=== PATIENT | female | born 1950 | race Caucasian/White ===

== ENCOUNTER → 2017-01-08 | Outpatient (CLI) | payer OTHER, MEDICARE ==
[2016-08-28 13:14] VITALS: BP 126/63
[~2017-01-08] MED LIST: LATA2.5D2 OP; OMEP20CA9 PO
[2017-01-08 09:56] LABS: CHOLESTEROL/HDL RATIO 4.6
== END | disposition home or self-care (01) ==
LOC: LAB 08:36
PROVIDERS: ATTEND Family Medicine
DX: E78.5 Hyperlipidemia, unspecified (principal); E55.9 Vitamin D deficiency, unspecified
CPT/HCPCS: 36415; 80061; 82306

== ENCOUNTER → 2017-03-05 | Outpatient (CLI) | payer OTHER, MEDICARE ==
[2016-08-28 13:14] VITALS: BP 126/63
--- NOTE | 2017-03-05 09:16 | KCIC ---
PROCEDURE Bone density. HISTORY Osteopenia, loss of height, postmenopausal. COMPARISON None. FINDINGS Dual photon densitometry of the lumbar spine and left proximal femur is performed. Bone mineral density values are measured in grams per cm2. Lumbar spine, L1-L4, total bone mineral density 0.856, T-score -1.7, Z-score 0.2. Left total femur bone mineral density 0.756, T-score -1.5, Z-score -0.1. World Health Organization criteria for bone mineral density interpretation classify patient's as normal (T-score at or above -1.0), osteopenic (T-score between -1 and -2.5), or osteoporotic (T-score at or below -2.5). IMPRESSION Osteopenia of the lumbar spine and left femur. Electronically signed by: Guille Ozuna MD (Mar 05, 2017 09:15:13)
== END | disposition home or self-care (01) ==
LOC: KCIC DEXA 08:50
PROVIDERS: ATTEND Family Medicine
DX: M85.88 Other specified disorders of bone density and structure, other site (principal)
CPT/HCPCS: 77080

== ENCOUNTER 2018-03-02 14:27 | Inpatient (IN) | payer OTHER, MEDICARE ==
[2018-03-02 15:14] LABS: BILIRUBIN,URINE SMALL (NEG); CLARITY,URINE CLEAR; COLOR,URINE AMBER; GLUCOSE,URINE NEGATIVE (NEG); NITRITE,URINE NEGATIVE (NEG); PH,URINE 5.5; PROTEIN,URINE NEGATIVE (NEG-TRACE)
[2018-03-02 15:25] LABS: BACTERIA,URINE MODERATE /HPF (0-FEW); SQUAMOUS EPITHELIAL CELL,UR OCC /LPF
[2018-03-02 15:31] LABS: ADD MAN DIFF? NO
[2018-03-02 15:33] LABS: BASO # 0.1 x10^3/uL (0.0-0.2); BASO % 1 % (0-3); EOS # 0.1 x10^3/uL (0.0-0.7); EOS % 1 % (0-3); HEMATOCRIT 38.9 % (36.0-47.0); LYMPH # 2.3 x10^3/uL (1.0-4.8); LYMPH % 30 % (24-48); MEAN CORPUSCULAR HEMOGLOBIN 30 pg (25-35); MEAN CORPUSCULAR HGB CONC 34 g/dL (31-37); MEAN CORPUSCULAR VOLUME 89 fL (79-100); MONO # 0.7 x10^3/uL (0.0-1.1); MONO % 9 % (0-9); NEUT # 4.6 x10^3uL (1.8-7.7); NEUT % 59 % (31-73); PLATELET COUNT 299 x10^3/uL (140-400); RED BLOOD COUNT 4.39 x10^6/uL (3.50-5.40); WHITE BLOOD COUNT 7.7 x10^3/uL (4.0-11.0)
[2018-03-02] MEDS: ACETAMINOPHEN 500 MG TABLET PO (15:35)
[2018-03-02] MEDS: IV NORMAL SALINE 1000ML BAG 1,000 ML IV ×2 (15:37→20:27)
[2018-03-02 15:44] LABS: PARTIAL THROMBOPLASTIN TIME 28 SEC (24-38); PROTHROMBIN TIME PATIENT 12.9 SEC (11.7-14.0)
[2018-03-02] MEDS ORDERED: cefTRIAXone SODIUM 2 GM in IV DEXTROSE 5% 100 ML IV (16:45)
[2018-03-02] MEDS: cefTRIAXone IV Push 2 GM VIAL. IVP (17:20)
[2018-03-02 17:37] LABS: TROPONINI < 0.017 ng/mL (0.000-0.055)
[2018-03-02 17:41] LABS: ANION GAP 11 (6-14); BLOOD UREA NITROGEN 12 mg/dL (7-20); BUN/CREATININE RATIO 20 (6-20); CARBON DIOXIDE 26 mmol/L (21-32); CHLORIDE 109 mmol/L (98-107); CREATININE 0.6 mg/dL (0.6-1.0); GFR 99.4; GLUCOSE 99 mg/dL (70-99); POTASSIUM 3.7 mmol/L (3.5-5.1); SODIUM 146 mmol/L (136-145)
[2018-03-02 17:43] LABS: THYROID STIM HORMONE (TSH) 0.328 uIU/mL (0.358-3.74)
[2018-03-02 17:44] LABS: ALBUMIN/GLOBULIN RATIO 0.9 (1.0-1.7); ALK PHOS 111 U/L (46-116); ALT (SGPT) 20 U/L (14-59); AST (SGOT) 14 U/L (15-37); CREATINE KINASE 72 U/L (26-192); LIPASE 95 U/L (73-393); MAGNESIUM 1.9 mg/dL (1.8-2.4); TOTAL BILIRUBIN 0.6 mg/dL (0.2-1.0); TOTAL PROTEIN 6.4 g/dL (6.4-8.2)
[2018-03-02] MEDS ORDERED: fentaNYL PF VIAL 100 MCG/2 ML VIAL IV (18:00)
[2018-03-02] MEDS ORDERED: ONDANSETRON PF 4 MG/2 ML VIAL. IV (18:00)
[2018-03-02] MEDS: IOHEXOL 300 MG/ML 100ML VIAL. IV (18:25)
[2018-03-02] MEDS ORDERED: CONTRAST GIVEN MC (18:30)
[2018-03-02] MEDS: LATANOPROST 0.005% OPHTH SOLUTION 2.5ML BOTTLE. OU (21:00)
[2018-03-02] MEDS: ENOXAPARIN 40 MG/0.4 ML SYRINGE. SQ (21:00)
[2018-03-02] MEDS: LACTOBACILLUS RHAMNOSUS GG 1 CAPSULE. PO (22:47)
[2018-03-02] MEDS: oxyCODONE/APAP 7.5/325 1 TAB TABLET PO (22:48)
[2018-03-03] MEDS: ZOLPIDEM 5 MG TABLET. PO (00:47)
[2018-03-03] MEDS: IV NORMAL SALINE 1000ML BAG 1,000 ML IV ×2 (04:00→11:56)
[2018-03-03 04:41] LABS: ADD MAN DIFF? NO
[2018-03-03 04:58] LABS: BASO % 1 % (0-3); EOS # 0.1 x10^3/uL (0.0-0.7); EOS % 2 % (0-3); HEMATOCRIT 39.5 % (36.0-47.0); HEMOGLOBIN 13.4 g/dL (12.0-15.5); LYMPH # 3.1 x10^3/uL (1.0-4.8); LYMPH % 45 % (24-48); MEAN CORPUSCULAR HEMOGLOBIN 30 pg (25-35); MEAN CORPUSCULAR HGB CONC 34 g/dL (31-37); MEAN CORPUSCULAR VOLUME 89 fL (79-100); MONO # 0.6 x10^3/uL (0.0-1.1); MONO % 8 % (0-9); NEUT # 3.1 x10^3uL (1.8-7.7); NEUT % 45 % (31-73); PLATELET COUNT 312 x10^3/uL (140-400); RED BLOOD COUNT 4.42 x10^6/uL (3.50-5.40); RED CELL DISTRIBUTION WIDTH 13.9 % (11.5-14.5); WHITE BLOOD COUNT 6.9 x10^3/uL (4.0-11.0)
[2018-03-03 05:30] LABS: ANION GAP 10 (6-14); BLOOD UREA NITROGEN 9 mg/dL (7-20); CALCIUM 8.5 mg/dL (8.5-10.1); CARBON DIOXIDE 28 mmol/L (21-32); CHLORIDE 106 mmol/L (98-107); CREATININE 0.6 mg/dL (0.6-1.0); GFR 99.4; GLUCOSE 111 mg/dL (70-99); POTASSIUM 3.3 mmol/L (3.5-5.1); SODIUM 144 mmol/L (136-145)
[2018-03-03] MEDS ORDERED: ONDANSETRON PF 4 MG/2 ML VIAL. IV (09:00)
[2018-03-03] MEDS: LACTOBACILLUS RHAMNOSUS GG 1 CAPSULE. PO ×2 (09:21→17:26)
[2018-03-03] MEDS: ACETAMINOPHEN 325 MG TABLET. PO (09:26)
[2018-03-03] MEDS: POTASSIUM CHLORIDE 20 MEQ TABLET.ER. PO (10:57)
[2018-03-03] MEDS: cefTRIAXone IV Push 2 GM VIAL. IVP (17:26)
[2018-03-03] MEDS: oxyCODONE/APAP 7.5/325 1 TAB TABLET PO (20:06)
[2018-03-03] MEDS: ENOXAPARIN 40 MG/0.4 ML SYRINGE. SQ (20:44)
[2018-03-03] MEDS: LATANOPROST 0.005% OPHTH SOLUTION 2.5ML BOTTLE. OU (20:44)
[2018-03-04] MEDS: PANTOPRAZOLE 40 MG TABLET.DR. PO (10:14)
[2018-03-04] MEDS: LACTOBACILLUS RHAMNOSUS GG 1 CAPSULE. PO (10:14)
[2018-03-04] MEDS: POTASSIUM CHLORIDE 20 MEQ TABLET.ER. PO (10:26)
== END 2018-03-04 15:00 | disposition home or self-care (01) | DRG 690 ==
LOC: ER 14:27 → 3 SO LND 18:08
DX: N10 Acute pyelonephritis (principal); E78.00 Pure hypercholesterolemia, unspecified; Z79.899 Other long term (current) drug therapy; Z88.8 Allergy status to other drugs, medicaments and biological substances; Z84.89 Family history of other specified conditions
CPT/HCPCS: 36415; 74177; 80048; 80053; 81001; 82550; 83690; 83735; 84443; 84484; 85025; 85610; 85730; 87040; 87086; 96360; 96361; 99285-25; J0696; J7030; Q9967

== ENCOUNTER 2018-03-12 13:46 | Emergency (ER) | payer OTHER, MEDICARE ==
[2018-03-12 14:25] LABS: ADD MAN DIFF? NO
[2018-03-12 14:29] LABS: BASO % 0 % (0-3); EOS # 0.1 x10^3/uL (0.0-0.7); EOS % 1 % (0-3); HEMOGLOBIN 12.4 g/dL (12.0-15.5); LYMPH # 3.1 x10^3/uL (1.0-4.8); LYMPH % 37 % (24-48); MEAN CORPUSCULAR HEMOGLOBIN 30 pg (25-35); MEAN CORPUSCULAR HGB CONC 34 g/dL (31-37); MEAN CORPUSCULAR VOLUME 88 fL (79-100); MONO # 0.8 x10^3/uL (0.0-1.1); MONO % 9 % (0-9); NEUT # 4.4 x10^3uL (1.8-7.7); NEUT % 53 % (31-73); PLATELET COUNT 421 x10^3/uL (140-400); RED BLOOD COUNT 4.09 x10^6/uL (3.50-5.40); WHITE BLOOD COUNT 8.3 x10^3/uL (4.0-11.0)
[2018-03-12 14:39] LABS: ANION GAP 10 (6-14); BLOOD UREA NITROGEN 21 mg/dL (7-20); BUN/CREATININE RATIO 30 (6-20); CALCIUM 9.3 mg/dL (8.5-10.1); CARBON DIOXIDE 26 mmol/L (21-32); CHLORIDE 102 mmol/L (98-107); CREATININE 0.7 mg/dL (0.6-1.0); GLUCOSE 121 mg/dL (70-99); POTASSIUM 3.8 mmol/L (3.5-5.1); SODIUM 138 mmol/L (136-145)
[2018-03-12 14:44] LABS: ALBUMIN 2.9 g/dL (3.4-5.0); ALBUMIN/GLOBULIN RATIO 0.7 (1.0-1.7); ALK PHOS 150 U/L (46-116); ALT (SGPT) 28 U/L (14-59); AST (SGOT) 23 U/L (15-37); TOTAL BILIRUBIN 0.6 mg/dL (0.2-1.0); TOTAL PROTEIN 7.3 g/dL (6.4-8.2)
[2018-03-12 14:47] LABS: TROPONINI < 0.017 ng/mL (0.000-0.055)
[2018-03-12 14:50] LABS: NT-PRO BNP 211 pg/mL (0-124)
[2018-03-12 15:15] LABS: LACTIC ACID 1.8 mmol/L (0.4-2.0)
[2018-03-12 15:28] LABS: INFLUENZA A PATIENT NEGATIVE (NEGATIVE); INFLUENZA B PATIENT NEGATIVE (NEGATIVE); OBC FLU VALID
[2018-03-12 16:15] LABS: BILIRUBIN,URINE NEGATIVE (NEG); CLARITY,URINE CLEAR; COLOR,URINE YELLOW; GLUCOSE,URINE NEGATIVE (NEG); NITRITE,URINE NEGATIVE (NEG); PH,URINE 5.5; PROTEIN,URINE NEGATIVE (NEG-TRACE)
[2018-03-12 16:23] LABS: BACTERIA,URINE 0 /HPF (0-FEW); RBC,URINE RARE /HPF (0-2); SQUAMOUS EPITHELIAL CELL,UR OCC /LPF; WBC,URINE OCC /HPF (0-4)
== END 2018-03-12 17:55 | disposition home or self-care (01) ==
LOC: ER 13:46
DX: B34.9 Viral infection, unspecified (principal); E78.00 Pure hypercholesterolemia, unspecified; Z88.8 Allergy status to other drugs, medicaments and biological substances
CPT/HCPCS: 36415; 71045; 80053; 81001; 83605; 83880; 84484; 85025; 87804; 87804-59; 93005; 99285-25

== ENCOUNTER → 2018-05-28 | Outpatient (CLI) | payer OTHER ==
[2018-05-28 16:54] LABS: FREE T4 0.78 ng/dL (0.76-1.46)
[2018-05-28 16:54] LABS: THYROID STIM HORMONE (TSH) 5.799 uIU/mL (0.358-3.74)
== END | disposition home or self-care (01) ==
LOC: LAB 16:00
DX: R79.89 Other specified abnormal findings of blood chemistry (principal); E78.00 Pure hypercholesterolemia, unspecified; E78.5 Hyperlipidemia, unspecified; E66.9 Obesity, unspecified; K21.9 Gastro-esophageal reflux disease without esophagitis; E55.9 Vitamin D deficiency, unspecified
CPT/HCPCS: 36415; 84439; 84443

== ENCOUNTER → 2018-06-10 | Outpatient (CLI) | payer OTHER ==
[2018-06-10] MEDS: GADOBUTROL 10 MMOL/10 ML VIAL IV (14:54)
== END | disposition home or self-care (01) ==
LOC: KCIC MAMMO 13:42
DX: Z12.31 Encounter for screening mammogram for malignant neoplasm of breast (principal); D35.01 Benign neoplasm of right adrenal gland; E55.9 Vitamin D deficiency, unspecified; E78.5 Hyperlipidemia, unspecified; E78.00 Pure hypercholesterolemia, unspecified; K21.9 Gastro-esophageal reflux disease without esophagitis; Z90.49 Acquired absence of other specified parts of digestive tract
CPT/HCPCS: 74183; 77063; 77067; A9585

== ENCOUNTER → 2018-06-24 | Day surgery (SDC) | payer OTHER ==
[~2018-06-24] MED LIST changes: -LATA2.5D2 OP; +LIDOCAINE 1% PF 2 ML VIAL. ID; +MIDAZOLAM HCL/PF 2 MG/2 ML VIAL. IV; -OMEP20CA9 PO; +PROPOFOL 0 ML IV; +PROPOFOL 20 ML IV; +fentaNYL PF VIAL 100 MCG/2 ML VIAL IV
[2018-06-24] MEDS: IV RINGERS,LACTATED 1000ML 1,000 ML IV ×2 (08:08→08:10)
== END | disposition home or self-care (01) ==
LOC: ENDOS 07:25
DX: Z12.11 Encounter for screening for malignant neoplasm of colon (principal); K57.30 Diverticulosis of large intestine without perforation or abscess without bleeding; K64.0 First degree hemorrhoids; E78.00 Pure hypercholesterolemia, unspecified; K21.9 Gastro-esophageal reflux disease without esophagitis; Z98.51 Tubal ligation status; Z90.49 Acquired absence of other specified parts of digestive tract; Z98.890 Other specified postprocedural states; Z88.8 Allergy status to other drugs, medicaments and biological substances; Z79.899 Other long term (current) drug therapy; Z72.89 Other problems related to lifestyle; Z98.41 Cataract extraction status, right eye; Z96.1 Presence of intraocular lens; H40.9 Unspecified glaucoma; E55.9 Vitamin D deficiency, unspecified
CPT/HCPCS: 45378; J2704

== ENCOUNTER → 2019-07-06 | Outpatient (CLI) | payer OTHER ==
[2018-06-24 09:44] VITALS: BP 125/69
[~2019-07-06] MED LIST changes: +EZET10TA18 PO; +LATA2.5D2 OP; -LIDOCAINE 1% PF 2 ML VIAL. ID; -MIDAZOLAM HCL/PF 2 MG/2 ML VIAL. IV; +OMEP20CA10 PO; -PROPOFOL 0 ML IV; -PROPOFOL 20 ML IV; -fentaNYL PF VIAL 100 MCG/2 ML VIAL IV
--- NOTE | 2019-07-06 11:18 | KCIC ---
Bilateral digital screening mammograms with 3-D tomosynthesis: Reason for examination: Routine screening. Comparison is made to previous studies dated 06/10/2018 and 01/22/2017. Bilateral mammograms in CC and oblique projections were obtained with 2-D imaging and 3-D tomosynthesis imaging on a Siemens Inspiration unit and reviewed on the workstation. Interpretation was made with the benefit of CAD. The skin and nipples show no abnormalities. No abnormal axillary lymph nodes are seen. The breast parenchyma shows scattered fatty and fibroglandular density. (Breast density: Category B.) There continue to be small nodular densities in the upper outer quadrants bilaterally which are stable. There are no new dominant masses, suspicious calcifications or architectural distortion. Benign calcifications are present. Impression: No evidence of malignancy. Recommend routine screening. BI-RAD Category 2: Benign. "Our facility is accredited by the [employer] Mammography [employer]." This patient's information has been entered into a reminder system for the patient to be notified with the results of her examination and a target date for the next mammogram. Electronically signed by: Amanda Hall MD (07/06/2019 11:15 AM) [id number]
== END | disposition home or self-care (01) ==
LOC: KCIC MAMMO 09:25
PROVIDERS: ATTEND Family Medicine
DX: Z12.31 Encounter for screening mammogram for malignant neoplasm of breast (principal); N64.89 Other specified disorders of breast
CPT/HCPCS: 77063; 77067

== ENCOUNTER → 2020-08-04 | Outpatient (CLI) | payer BC ==
[2018-06-24 09:44] VITALS: BP 125/69
[~2020-08-04] MED LIST changes: -EZET10TA18 PO; +EZET10TA20 PO; -OMEP20CA10 PO; +OMEP20CA16 PO
--- NOTE | 2020-08-04 13:07 | KCIC ---
EXAM: Bilateral digital screening mammogram with tomosynthesis. HISTORY: 70-year-old female presents for screening mammography. TECHNIQUE: Full-field digital craniocaudal and mediolateral oblique 2D and 3D tomosynthesis images of both breasts are obtained for evaluation. Computer aided detection with PawziiD software version 9.3 was applied. COMPARISON: 07/06/2019 and 06/10/2018 BREAST PARENCHYMAL DENSITY: Level B - Scattered fibroglandular densities. FINDINGS: There has been interval increase in a small circumscribed nodule 3:00 position of the left breast compared to prior studies. There are additional circumscribed nodular densities within both breasts which are stable in appearance. There are tiny circumscribed nodular densities within the medial subareolar right breast and medial right breast at mid depth which are minimally increased compared to the study dated 06/10/2018. The minimal interval spinning frame changer a two-year interval favors a benign cystic etiology. There is no architectural distortion. There is no suspicious calcification. IMPRESSION: BI-RADS Category 0: Incomplete. Additional imaging needed. RECOMMENDATION: Further evaluation with a left breast sonogram is recommended to assess a small nodule at the 3:00 position at mid depth. If your mammogram demonstrates that you have dense breast tissue, which could hide abnormalities, and if you have other risk factors for breast cancer that have been identified, you might benefit from supplemental screening tests that may be suggested by your ordering physician. Dense breast tissue, in and of itself, is a relatively common condition. This information is not provided to cause undue concern, but rather to raise your awareness and to promote discussion with your physician regarding the presence of other risk factors, in addition to dense breast tissue. A report of your mammography results will be sent to you and your physician. You should contact your physician if you have any questions or concerns regarding this report. Mammography is a sensitive method for finding small breast cancers, but it does not detect them all and is not a substitute for careful clinical examination. A negative mammogram does not negate a clinically suspicious finding and should not result in delay in biopsying a clinically suspicious abnormality. PQRS compliance statement - Patient information was entered into a reminder system with a target due date for the next mammogram. "Our facility is accredited by the [employer] Mammography [employer]." Electronically signed by: Yris Rebolledo MD (08/04/2020 1:03 PM) [place] [id number]
== END | disposition home or self-care (01) ==
LOC: KCIC MAMMO 08:42
PROVIDERS: ATTEND Family Medicine
DX: Z12.31 Encounter for screening mammogram for malignant neoplasm of breast (principal); N63.21 Unspecified lump in the left breast, upper outer quadrant
CPT/HCPCS: 77063; 77067

== ENCOUNTER → 2020-08-11 | Outpatient (CLI) | payer BC ==
[2018-06-24 09:44] VITALS: BP 125/69
--- NOTE | 2020-08-11 12:29 | RAD ---
Examination: BREAST LEFT History: ABNORMAL MAMMOGRAM CALLBACK / Comparison/Correlation: 07/06/2019 and 08/04/2020 screening mammographic exam Findings: Limited left breast ultrasound performed at the upper outer quadrant. There is a 0.9 cm x 0.8 cm x 0.3 cm tall well-circumscribed hypoechoic mass which is identified to correspond with a stable mass seen on multiple prior mammographic exams. At the 3:00 region 6 cm from the nipple, there is a 0.4 cm x 0.34 cm x 0.24 cm tall hypoechoic irregularly lobulated mass. No flow within it. There is a benign-appearing left axillary lymph node is present. Impression: BI-RADS Category 4-suspicious for malignancy. Ultrasound-guided core biopsy of the 0.4 cm diameter 3:00 mass is recommended. The patient was informed of the need for biopsy at the time of her visit. Dr. Whalen was informed on 08/11/2020 12:25 PM. Electronically signed by: Sam Dial MD (08/11/2020 12:26 PM) [email or web address]
== END | disposition home or self-care (01) ==
LOC: US 11:18
PROVIDERS: ATTEND Family Medicine
DX: R92.8 Other abnormal and inconclusive findings on diagnostic imaging of breast (principal); N63.21 Unspecified lump in the left breast, upper outer quadrant
CPT/HCPCS: 76641

== ENCOUNTER → 2020-08-21 | Outpatient (CLI) | payer BC ==
[2018-06-24 09:44] VITALS: BP 125/69
--- NOTE | 2020-08-21 10:46 | RAD ---
EXAM: BREAST LEFT 08/21/2020 10:34 AM CLINICAL INDICATION:Attempted left breast biopsy COMPARISON:Left breast ultrasound 08/11/2020 TECHNIQUE:The purpose of the procedure, risks and benefits were discussed with the patient. Timeout was performed. The tiny 3 mm hypoechoic mass at 3:00 6 cm from the nipple in the left breast was identified by ultrasound. The overlying site was marked, prepped, draped in standard sterile fashion. Soft tissue was anesthetized by 1 percent lidocaine. Under ultrasound guidance, the introducer was inserted to the mass. Upon inserting the biopsy needle, the mass could no longer be visualized. No samples were obtained. The needle and introducer were removed and skin cleansed and covered with a Band-Aid. IMPRESSION:Unsuccessful attempt at biopsy of left breast mass at 3:00 6 cm the nipple. It is likely that this was a tiny complicated cyst or clustered microcysts that was ruptured by the needle when attempting to biopsy, however because no sample was obtained I recommend that the patient returns later this week to reevaluate the area. Further management with a repeat attempt at biopsy versus short interval follow-up ultrasound can be determined at that time. The patient was in agreement with the plan. Electronically signed by: Mariela Potter MD (08/21/2020 10:44 AM) [id number]
== END | disposition home or self-care (01) ==
LOC: US 08:24
PROVIDERS: ATTEND Surgery
DX: R92.8 Other abnormal and inconclusive findings on diagnostic imaging of breast (principal); N63.21 Unspecified lump in the left breast, upper outer quadrant
CPT/HCPCS: 76641

== ENCOUNTER → 2020-08-23 | Outpatient (CLI) | payer BC ==
[2018-06-24 09:44] VITALS: BP 125/69
--- NOTE | 2020-08-23 17:38 | RAD ---
EXAM: Ultrasound-guided biopsy of left breast mass, postclip mammogram INDICATION: Left breast mass COMPARISON: Attempted ultrasound-guided biopsy 08/21/2020 and left breast ultrasound 04/05/2020 TECHNIQUE/FINDINGS: The purpose of the procedure, risks and benefits were explained to the patient. Informed consent was obtained. A timeout was performed. The patient was placed supine on the ultrasound table. The 3 mm mass at 3:00 6 cm the nipple in the left breast was identified and overlying skin marked, prepped, draped in standard sterile fashion. Skin was anesthetized with buffered 1 percent lidocaine. Next, 3 core biopsy samples were obtained with a coaxial 14-gauge biopsy device. Samples were placed in formalin and sent to the laboratory for analysis. A ribbon marker was then placed at the biopsy site under ultrasound. [place] were removed, pressure held for hemostasis, and skin cleansed and covered with a dressing. The patient tolerated the procedure well and left in stable condition. Post clip mammogram demonstrates appropriate position of clip in the region of the mass at 3:00, 6 cm the nipple. The mass is no longer visible. IMPRESSION: Technically successful ultrasound-guided biopsy of left breast mass. Satisfactory biopsy clip placement. Electronically signed by: Mariela Potter MD (08/23/2020 5:35 PM) [id number]
--- NOTE | 2020-08-24 18:06 | PATHOLOGY ---
[facility] Accession Number: [id number] . 01 Material submitted: . breast - LEFT BREAST TISSUE 3:00 6CMFN. Modifiers: left, 3:00 . 01 Clinical history: . LEFT BREAST LUMP 3:00 6CMFN . 02 Diagnosis: Breast tissue, left breast lump 3:00 needle biopsies: - Apocrine cyst. - Moderate/florid ductal epithelial hyperplasia, focal. (JPM:entrepreneurship program director; 08/24/2020) MBR 08/24/2020 1623 Local . 02 Comment: Sections of the left breast lump at 3:00 needle biopsy reveal predominantly fatty breast tissue. One of the biopsy segments shows a portion of a cyst lined by apocrine epithelium. Another fragment shows a small focus of moderate/florid ductal epithelial hyperplasia. There is no atypia or evidence of malignancy. I am uncertain as to whether or not the lesion is adequately represented in the biopsy. Please correlate with mammographic findings. (JPM:entrepreneurship program director; 08/24/2020) . 02 Electronically signed: . Zachary Baldwin MD, Pathologist NPI- [id number] . 01 Gross description: . The specimen is received in formalin, labeled "Mari Bazan, left breast 3:00 6 cm from nipple". Received are multiple needle cores of fibrofatty tissue measuring 1.0 x 0.6 x 0.2 cm in aggregate dimensions. The specimen is submitted entirely in cassettes A1 through A3. The cold ischemic time is 2 minutes. The total formalin fixation time is 10 hours and 35 minutes. (CAA; 08/23/2020) QAC/QAC 08/23/2020 1810 Local . 02 Pathologist provided ICD-10: N60.01, N62 . 02 CPT . 977688 Specimen Comment: A courtesy copy of this report has been sent to [phone], [phone] Specimen Comment: [id number], Specimen Comment: Report sent to ,DR REYES / DR CONNELLY Performed at: 01 [facility] [address], [place] [id number] MD Manuel Lopez MD Phone: [phone] Performed at: 02 [facility] [address] [place], [place] [id number] MD Zachary Baldwin MD Phone: [phone]
== END ==
LOC: US 12:13
PROVIDERS: ATTEND Surgery
DX: R92.8 Other abnormal and inconclusive findings on diagnostic imaging of breast (principal); N60.01 Solitary cyst of right breast; N62 Hypertrophy of breast; Z88.8 Allergy status to other drugs, medicaments and biological substances; Z79.899 Other long term (current) drug therapy
CPT/HCPCS: 19083; 76641; 77065; 88305; C1713; 19081; 76942

== ENCOUNTER → 2020-12-11 | Outpatient (CLI) | payer BC ==
[2018-06-24 09:44] VITALS: BP 125/69
--- NOTE | 2020-12-11 09:46 | RAD ---
Examination: Limited left breast ultrasound. INDICATION: 3 months follow-up benign left breast core needle biopsy. COMPARISON: Screening mammogram of 08/04/2020, left breast ultrasound of 08/23/2020, left ultrasound-gu ided core needle biopsy images and postprocedure mammogram of 08/23/2020. TECHNIQUE: Targeted ultrasound of the left breast with grayscale imaging and color Doppler imaging wa s performed in the upper-outer quadrant focus at the 2:00 position 7 cm from the nipple. Sonographic survey of the left axilla was also performed. FINDINGS: Patient 1 cm mass at the left o'clock position 7 cm from nipple is identified, sonographically benign and compatible with benign fat lobule. The biopsy marker is not well seen by ultrasound but no suspi cious sonographic findings identified either. No axillary adenopathy is shown in the left axilla. IMPRESSION: Benign findings on limited left breast ultrasound. No evidence of malignancy. BI-RADS Category 2 Benign findings Recommend patient return to routine mammographic screening, next due after August 04, 2021. Patient entered into a reminder system with targeted due date for next mammogram. Electronically signed by: Allan Flynn MD (12/11/2020 9:44 AM) [id number]
== END ==
LOC: US 09:12
PROVIDERS: ATTEND Surgery
DX: N63.21 Unspecified lump in the left breast, upper outer quadrant (principal)
CPT/HCPCS: 76641

== ENCOUNTER → 2021-08-17 | Outpatient (CLI) | payer BC ==
[2018-06-24 09:44] VITALS: BP 125/69
--- NOTE | 2021-08-20 08:20 | KCIC ---
Bilateral digital screening 2-D and 3-D (digital breast tomosynthesis) mammogram: Reason for examination: Routine screening. Comparison: Mammograms from 08/04/2020, 07/06/2019, and 06/10/2018. Interpretation was made with the benefit of CAD. FINDINGS: Breast density: Category B. There are scattered areas of fibroglandular density. No new suspicious breast mass, malignant appearing calcifications, or architectural distortion is see n. There are unchanged small oval circumscribed masses in the breasts. IMPRESSION: No evidence of malignancy. Assessment: BI-RADS 2. Benign findings. Recommendation: Routine screening mammograms. The patient will receive a letter with the results in the mail. Patient information will be entered i nto the mammography reminder system with a target recall date for the next mammogram. A reminder natty er will be generated. Electronically signed by: Mulu Bravo MD (08/20/2021 8:17 AM) [email or web address]
== END ==
LOC: KCIC MAMMO 11:08
PROVIDERS: ATTEND Family Medicine
DX: Z12.31 Encounter for screening mammogram for malignant neoplasm of breast (principal)
CPT/HCPCS: 77063; 77067